=== PATIENT | male | born 1950 | race Caucasian/White ===

== ENCOUNTER 2017-01-29 12:23 | Inpatient (IN) | payer MEDICARE, OTHER ==
[~2017-01-29] VITALS: Ht 172.7 cm; Wt 102.1 kg
[2017-01-29 13:17] LABS: HEMOGLOBIN 10.6 gm/dl (14.0-17.5); RED BLOOD COUNT 3.48 M/UL (4.20-5.50); WHITE BLOOD COUNT 11.8 K/UL (4.5-11.0)
[2017-01-29] MEDS ORDERED: DILTIAZEM 24HR360 MG PO (21:41)
[2017-01-29] MEDS ORDERED: GLUCOTROL XL 5 M5 MG PO (21:42)
[2017-01-29] MEDS ORDERED: GLUCOPHAGE 500500 MG PO (21:43)
[2017-01-29] MEDS ORDERED: HUMALOG100 UNIT/3 SC (21:43)
[2017-01-29] MEDS ORDERED: ASPIR 8181 MG PO (21:44)
[2017-01-29] MEDS ORDERED: DEPAKOTE ER500 MG PO (21:44)
[2017-01-29] MEDS ORDERED: PALIPERIDONE PO (21:45)
[2017-01-29] MEDS ORDERED: ZOCOR20 MG PO (21:46)
[2017-01-29] MEDS ORDERED: PROZAC20 MG PO (21:46)
[2017-01-29] MEDS ORDERED: ABILIFY30 MG PO (21:46)
[2017-01-29] MEDS ORDERED: FISH OIL 1,0001 EAC1 PO (21:47)
[2017-01-29] MEDS ORDERED: FENOFIBRATE54 MG PO (21:47)
[2017-01-29] MEDS ORDERED: REMERON45 MG PO (21:47)
[2017-01-29] MEDS ORDERED: LEVEMIR100 UNIT/1 SC (21:48)
[2017-01-29] MEDS ORDERED: JANUVIA100 MG PO (21:48)
[2017-01-29] MEDS ORDERED: COZAAR100 MG PO (21:49)
[2017-01-29] MEDS ORDERED: LASIX 40 MG TAB40 MG PO (21:49)
[2017-01-29] MEDS ORDERED: COREG 25MG TAB25 MG PO (21:49)
[2017-01-29] MEDS ORDERED: CATAPRES 0.1MG0.1 MG PO (21:49)
[2017-01-29] MEDS ORDERED: FERROUS SULFAT325 MG PO (21:50)
[2017-01-30 04:05] LABS: HEMOGLOBIN 10.6 gm/dl (14.0-17.5); RED BLOOD COUNT 3.5 M/UL (4.20-5.50); WHITE BLOOD COUNT 9.6 K/UL (4.5-11.0)
[2017-01-31] MEDS ORDERED: LIPITOR TAB 2020 MG PO (16:52)
[2017-01-31] MEDS ORDERED: MIRALAX17 GM PO (17:00)
[2017-01-31] MEDS ORDERED: COLACE 100MG C100 MG PO (17:03)
== END 2017-01-31 18:45 | disposition home health service (06) | DRG 683 ==
LOC: ER1 12:23 → ZEROF 18:54 → CCU 18:54 → PROG CARE 01-31 10:05
PROVIDERS: Emergency Medicine; ADMIT Internal Medicine
DX: N17.9 Acute kidney failure, unspecified (principal); E87.1 Hypo-osmolality and hyponatremia; E87.2 Acidosis; F20.9 Schizophrenia, unspecified; E11.65 Type 2 diabetes mellitus with hyperglycemia; I12.9 Hypertensive chronic kidney disease with stage 1 through stage 4 chronic kidney disease, or unspecified chronic kidney disease; E11.22 Type 2 diabetes mellitus with diabetic chronic kidney disease; R55 Syncope and collapse; F17.220 Nicotine dependence, chewing tobacco, uncomplicated; K59.00 Constipation, unspecified; E87.5 Hyperkalemia; R00.1 Bradycardia, unspecified; R09.02 Hypoxemia; E78.5 Hyperlipidemia, unspecified; N18.3 Chronic kidney disease, stage 3 (moderate); Z79.4 Long term (current) use of insulin; Z82.49 Family history of ischemic heart disease and other diseases of the circulatory system; Z83.3 Family history of diabetes mellitus; Z79.82 Long term (current) use of aspirin; Z79.84 Long term (current) use of oral hypoglycemic drugs; Z79.899 Other long term (current) drug therapy
CPT/HCPCS: 36415; 70450; 71010; 71020; 80048; 80053; 81001; 82009; 82550; 82553; 82803; 82962; 83036; 83605; 83690; 83735; 83874; 83880; 84100; 84484; 85025; 85610; 85730; 86140; 87040; 93005; 94640; 94664; 96374; 96375; 99285; J0610; J1650; J1815; J1956; J3370; J7030; J7050

== ENCOUNTER 2017-02-28 17:42 | Emergency (ER) | payer MEDICARE, OTHER ==
[~2017-02-28 17:42] MED LIST: ABILIFY30 MG PO; ASPIR 8181 MG PO; CATAPRES 0.1MG0.1 MG PO; COLACE 100MG C100 MG PO; COREG 25MG TAB25 MG PO; COZAAR100 MG PO; DEPAKOTE ER500 MG PO; DILTIAZEM 24HR360 MG PO; FENOFIBRATE54 MG PO; FERROUS SULFAT325 MG PO; FISH OIL 1,0001 EAC1 PO; GLUCOPHAGE 500500 MG PO; GLUCOTROL XL 5 M5 MG PO; HUMALOG100 UNIT/3 SC; JANUVIA100 MG PO; LASIX 40 MG TAB40 MG PO; LEVEMIR100 UNIT/1 SC; LIPITOR TAB 2020 MG PO; MIRALAX17 GM PO; PALIPERIDONE PO; PROZAC20 MG PO; REMERON45 MG PO; ZOCOR20 MG PO
[2017-02-28 20:29] LABS: HEMOGLOBIN 10.7 gm/dl (14.0-17.5); RED BLOOD COUNT 3.49 M/UL (4.20-5.50); WHITE BLOOD COUNT 6.9 K/UL (4.5-11.0)
== END 2017-02-28 23:30 | disposition home or self-care (01) ==
LOC: ER1 17:42
PROVIDERS: Emergency Medicine
DX: E87.1 Hypo-osmolality and hyponatremia (principal); I12.9 Hypertensive chronic kidney disease with stage 1 through stage 4 chronic kidney disease, or unspecified chronic kidney disease; N18.9 Chronic kidney disease, unspecified; E11.22 Type 2 diabetes mellitus with diabetic chronic kidney disease; D64.9 Anemia, unspecified
CPT/HCPCS: 36415; 71010; 80053; 81001; 82436; 82550; 82570; 83935; 84133; 84300; 84484; 85025; 87086; 93005; 99284

== ENCOUNTER → 2017-03-04 | Outpatient (CLI) | payer MEDICARE, OTHER | LOC: LAB 07:49 | PROVIDERS: Emergency Medicine | DX: E87.8 Other disorders of electrolyte and fluid balance, not elsewhere classified (principal) | CPT/HCPCS: 36415; 80048 ==